=== PATIENT | female | born 1970 | race Caucasian/White ===

== ENCOUNTER 2018-09-06 19:13 | Emergency (ER) | payer SELFPAY ==
[~2018-09-06] VITALS: Ht 175.3 cm; Wt 53.1 kg
[2018-09-06 19:34] VITALS: BP 146/84
--- NOTE | 2018-09-06 20:00 | NUR ---
C/O R GROIN PAIN 7/10 AND SHARP X2 DAYS. PT REPORTS CHRONIC GROIN PAIN ISSUES FOR THE LAST 25 YEARS, AND USUALLY IBUPROFEN RELIEVES THE PAIN, BUT THIS TIME ITS NOT. PT DENIES RECENT INJURY TO THE AREA. NO OBVIOUS DEFORMITY NOTED, PT DOES HESITATE TO MOVE IN BED DUE TO PAIN. M/S FUNCTION INTACT, CAP REFIL <3 SEC TO R FOOT, DENIES NUMBNESS/TINGLING/PARASTHESIA TO R LEG. BED IN LOW POSITION, SIDE RAIL UP. PT PROVIDED A BLANKET FOR COMFORT.
[2018-09-06] MEDS ORDERED: IBUPROFEN 800 MG TAB PO ONE (20:15)
[2018-09-06 20:43] LABS: APPEARANCE,URINE SL CLOUDY (CLEAR); BILIRUBIN,URINE NEGATIVE (NEGATIVE); BLOOD, URINE NEGATIVE (NEGATIVE); COLOR,URINE YELLOW (YELLOW); LEUKOCYTE ESTERASE ,URINE NEGATIVE (NEGATIVE); NITRITE, URINE POSITIVE (NEGATIVE); UGLUCOSE NEGATIVE (NEGATIVE)
--- NOTE | 2018-09-06 20:59 | NUR ---
PT REUTRN FROM CT
[2018-09-06] MEDS ORDERED: cefTRIAXone 1,000 MG in LIDOCAINE MPF 1% - 5 mL VIAL 2.1 ML IM ONE (21:00)
[2018-09-06 22:12] VITALS: BP 146/84
--- NOTE | 2018-09-06 22:12 | NUR ---
Patient discharged with v/s stable. Written and verbal after care instructions given and explained. Patient alert, oriented and verbalized understanding of instructions. Ambulatory with steady gait. All questions addressed prior to discharge. ID band removed. Patient advised to follow up with PMD. Rx of CIPRO, IBUPROFEN, MIRALAX given. Patient educated on indication of medication including possible reaction and side effects. Opportunity to ask questions provided and answered. NO PAIN AT TIME OF DISCHARGE. EDUCATED ON EATING HIGH FIBER DIET. PT VERBALIZED UNDERSTANDING ON EDUCATION.
== END 2018-09-06 22:12 | disposition home or self-care (01) ==
LOC: MED 19:13
DX: I88.0 Nonspecific mesenteric lymphadenitis (principal); K59.00 Constipation, unspecified; N39.0 Urinary tract infection, site not specified; Z91.013 Allergy to seafood; Z98.890 Other specified postprocedural states
CPT/HCPCS: 72192; 81003; 81025; 96372; 99284; J0696; J2001